=== PATIENT | female | born 1950 | race Caucasian/White ===

== ENCOUNTER 2017-01-08 11:01 | Day surgery (SDC) | payer BC ==
--- NOTE | 2017-01-08 08:26 | HP ---
PROCEDURE DATE: 01/08/17 HISTORY OF PRESENT ILLNESS: The patient is a 66 y/o who had left breast cancer diagnosis, core biopsy. She had a benign lymph node on biopsy. Has a moderately large mass left breast. Discussed with Dr. Sanchez. He feels she would benefit from neoadjuvant chemotherapy and then proceed with probable breast conservative thereafter depending on response from the treatments. PAST MEDICAL HISTORY: Asthma. CURRENT MEDICATIONS: Zyrtec. ALLERGIES: PENICILLIN, SULFA, TETRACYCLINE. PAST SURGICAL HISTORY: Tonsillectomy, partial hysterectomy. She still has 1 ovary according to the patient. FAMILY HISTORY: Cancer. SOCIAL HISTORY: No smoking or alcohol abuse. REVIEW OF SYSTEMS: 10 systems reviewed. No chest pains or palpitations. Other systems negative or noncontributory other than above and per preadmission questionnaire. PHYSICAL EXAMINATION: GENERAL: No acute distress. HEENT: Sclerae nonicteric. NECK: No JVD. CHEST: Equal excursion. Nonlabored breathing. CVS: Regular rate and rhythm. ABDOMEN: Soft. No peritoneal signs. EXTREMITIES: No significant edema. NEURO: A&O, moving extremities symmetrically. No gross motor deficits noted. BREAST: On breast exam, she has an upper inner quadrant of breast moderate sized density. IMPRESSION: 1. LEFT BREAST CANCER, MODERATELY LARGE MASS. Dr. Sanchez plans neoadjuvant chemotherapy and then will reevaluate for surgical intervention whether breast conservative therapy thereafter. The patient had been explained this and agreed to the current plan. Risk of poor placement explained in detail, but not limited to, bleeding; infection; risk of pneumothorax or thrombosis; risk of aches, pains, hematoma or seroma formation; risk of port infection; risk of port or catheter fracture or failure possibly requiring removal or replacement.; small risk of arterial or other major venous issues or injury, but not limited to. She understands as well as the general risks of anesthesia or sedation. She agrees to the planned procedure of Port-a-Cath placement as an outpatient.
[~2017-01-08 11:01] MED LIST: DIPRIVAN 200 MG/20 ML IV ONE; Ketamine HCl 50 MG/ML IJ ONE; Lactated Ringers 1,000 ML IV ONE; Lactated Ringers 1,000 ML IV SCH; Levofloxacin 500MG/100ML D5W 100 ML IV ONE; XYLOCAINE 1% HCL 20 ML MDV ONE
[2017-01-08] MEDS ORDERED: Levofloxacin 500MG/100ML D5W 100 ML IV ONE (11:09)
--- NOTE | 2017-01-08 13:37 | XRAY ---
Indication: PowerPort placement. History of breast cancer. Intraoperative fluoroscopy was provided for 4 seconds. 4 digital spot images submitted for interpretation initially demonstrates right subclavian venous guidewire with ultimately right-sided Port-A-Cath placement in good. Correlate with intraoperative findings/report.
[2017-01-08 14:25] VITALS: O2SAT 100
[2017-01-08 14:26] VITALS: BP 160/86; PULSE 78
--- NOTE | 2017-01-08 15:45 | OP ---
SURGERY DATE/TIME: 01/08/2017 1231 PREOPERATIVE DIAGNOSIS: Left breast cancer, need for rn long term care IV access for neoadjuvant treatment. POSTOPERATIVE DIAGNOSIS: Left breast cancer, need for rn long term care IV access for neoadjuvant treatment. PROCEDURE: Tunnel Port-A-Cath placement C-arm fluoroscopy right subclavian vein. SURGEON: Dr. Jerrod Erwin. ANESTHESIA: MAC. 1% lidocaine local. ESTIMATED BLOOD LOSS: Minimal. INDICATIONS: As noted above. Risks and benefits explained in detail and not limited to and consent obtained. DESCRIPTION OF PROCEDURE AND FINDINGS: The patient is taken to the operating room. MAC anesthesia introduced. Neck and chest prepped and draped in usual sterile fashion. After official time out and no disagreement with planned procedure, Trendelenburg position, 1% lidocaine local was infiltrated right subclavicular area. 18 gauge cannulation needle inserted on first pass. Good dark nonpulsatile venous return. Guide wire passed without difficulty. Anesthetizing tunnel track and port pocket. C-arm fluoroscopy confirmed the guide wire down the superior vena cava. The catheter is tunneled down from the cannulation stab wound down to port pocket. The port secured to the chest wall with Prolene suture x2. Catheter fed down break away sheath. The tip was in the distal superior vena cava on C-arm fluoroscopy. Catheter cut to appropriate length and snapped on the port with the hub. The port aspirated dark nonpulsatile venous return with ease, flushed with heparinized saline with ease. Subcu irrigated out. Good hemostasis noted. Subcu closed with 3-0 Vicryl. Skin closed with 4-0 Vicryl. Cannulation stab wound closed with 4-0 Vicryl. Steri-Strips and sterile dressing applied. Again, a spot film where the catheter connected to the port with the tip in good location distal superior vena cava noted. The lung alves were noted to be up bilaterally. It was felt that no further x-rays were necessary at this point. The patient tolerated the procedure well. There was no family available out in the waiting area to discuss the findings with. I left a message should anybody return and have questions I could be paged otherwise I will see her back in the office next week.
== END 2017-01-08 14:20 | disposition home or self-care (01) ==
LOC: SDC 11:01
PROVIDERS: ATTEND Surgery
PROC: 05H633Z Insertion of Infusion Device into Left Subclavian Vein, Percutaneous Approach (ICD-10-PCS; principal; 2017-01-08)
DX: C50.912 Malignant neoplasm of unspecified site of left female breast (principal); J45.909 Unspecified asthma, uncomplicated
CPT/HCPCS: 00532; 77001; C1788; J1642; J1956; J2704

== ENCOUNTER 2017-05-08 00:10 | Emergency (ER) | payer BC ==
[2017-05-08] MEDS ORDERED: Phenergan 25 MG INJ IM ONE (01:13)
[2017-05-08] MEDS ORDERED: Hydromorphone 1 mg/ml Ampule IM ONE (01:13)
--- NOTE | 2017-05-08 01:15 | ERPHSYRPT ---
- History of Present Illness Time Seen by Provider: 05/08/17 01:01 Source: patient Exam Limitations: no limitations Patient Subjective Stated Complaint: Pt sts fell in the shower yesterday morning and struck left side ribs. Sts took aleve at home without relief. Sts pain with deep inspiration, coughing, sneezing, movement. Rates pain7/10. Triage Nursing Assessment: Pt alert, oriented, answers all questions appropriately. Skin p/w/d, resps non-labored. Lungs CTA bilat. No obvious bruising or deforemity noted. Pt denies pain with light palpation. Physician History: ABOUT 16 HOURS AGO PT SLIPPED IN HER SHOWER AND HIT THE LEFT SIDE OF HER RIBS ON A MOLDED BENCH WITH RESULTANT LEFT RIB PAIN AND NECK PAIN. PT DENIES LOC, VOMITING, BACK PAIN; ADMITS TO SOME NUMBNESS IN THE FINGERTIPS OF BOTH HANDS AND SOME TINGLING IN THE FEET FROM CHEMOTHERAPY FOR BREAST CANCER. Allergies/Adverse Reactions: Penicillins Allergy (Unknown, Verified 05/08/17 00:34) Tightness of Throat Sulfa (Sulfonamide Antibiotics) [Sulfa(Sulfonamide Antibiotics)] Allergy ( Unknown, Verified 05/08/17 00:34) Rash tetracycline [Tetracycline] Allergy (Unknown, Verified 05/08/17 00:34) Rash anesthetics Adverse Reaction (Unknown, Uncoded 05/08/17 00:34) Nausea and Vomiting Home Medications: Cetirizine HCl [Zyrtec] 10 mg PO DAILY 12/20/12 [History] Albuterol 2.5 mg/3 ml Neb [Proventil 2.5 mg/3 ml Neb] 2 puffs IH Q4-6HPRN PRN 12/23/12 [History] Montelukast Sodium [Singulair] 10 mg PO DAILY 04/30/17 [History] Beclomethasone Dipropionate [Qvar] 8.7 gm IH DAILY 05/08/17 [History] Hx Influenza Vaccination/Date Given: No Hx Pneumococcal Vaccination/Date Given: No - Review of Systems Constitutional: No Fever Cardiac: Other (LEFT RIB PAIN) Abdominal/Gastrointestinal: No Abdominal Pain, No Vomiting Musculoskeletal: Neck Pain, No Back Pain Neurological: Sensory Changes (NUMBNESS/TINGLING IN EXTREMITIES FROM CHEMOTHERAPY) All Other Systems: Reviewed and Negative - Past Medical History Pertinent Past Medical History: Yes Neurological History: No Pertinent History ENT History: No Pertinent History Cardiac History: No Pertinent History Respiratory History: Asthma Endocrine Medical History: No Pertinent History Musculoskeletal History: No Pertinent History GI Medical History: No Pertinent History History: No Pertinent History Psycho-Social History: No Pertinent History Female Reproductive Disorders: No Pertinent History, Breast Cancer - Past Surgical History Past Surgical History: Yes Neuro Surgical History: No Pertinent History Cardiac: No Pertinent History Respiratory: No Pertinent History Gastrointestinal: No Pertinent History Genitourinary: No Pertinent History Musculoskeletal: No Pertinent History Female Surgical History: Hysterectomy, Other Other Surgical History: cyst removal on back, partial hysterectomy, L breast bx , port placement - Social History Smoking Status: Never smoker Exposure to second hand smoke: No Drug Use: none Patient Lives Alone: No - Nursing Vital Signs Nursing Vital Signs: Initial Vital Signs Temperature 98.4 F Temperature Source Oral Pulse Rate 99 Respiratory Rate 16 Blood Pressure [Right Arm] 122/69 Pain Intensity 5 - Ashleigh Coma Score Best Eye Response ([place]): (4) open spontaneously Best Verbal Response ([place]): (5) oriented Best Motor Response ([place]): (6) obeys commands [place] Total: 15 - Physical Exam General Appearance: alert Head Injury: no evidence of injury Eye Exam: PERRL/EOMI ENT Exam: airway nml, nml ext.inspection, hearing grossly normal, No clear fluid (ears), No clear fluid (nose) Neck Exam: supple, trachea midline, tenderness (MILD POSTERIOR TENDERNESS) Respiratory/Chest Exam: chest tenderness (MILD LEFT LOWER RIB TENDERNESS WITHOUT BRUISING OR CREPITUS.) Cardiovascular Exam: normal heart sounds Gastrointestinal Exam: soft, normal bowel sounds, No tenderness Back Exam: normal range of motion Extremity Exam: normal inspection, normal range of motion, No pedal edema Peripheral Pulses: dorsalis-pedis (R): 2+, dorsalis-pedis (L): 2+ Neurologic Exam: alert, cooperative, sensation nml (FOR PT), No motor deficits Skin Exam: warm, dry SpO2 Interpretation: normal SpO2: 96 Oxygen Delivery: Room Air - Course Nursing assessment & vital signs reviewed: Yes - Radiology Exams Left Ribs X-ray Interpretation: Teleradiologist Report (NO FX) - CT Exams Cervical Spine CT Interpretation: Tele-radiologist Report (NO FX) Ordered Tests: Active Orders 24 hr Category Date Time Status CERVICAL SPINE WO CONTRAST [CT] Stat Exams 05/08/17 01:12 Taken RIBS UNILATERAL Stat Exams 05/08/17 01:12 Taken Medication Summary Discontinued Medications Generic Name Dose Route Start Last Admin Trade Name Charly PRN Reason Stop Dose Admin Hydromorphone HCl 1 mg 05/08/17 01:13 05/08/17 01:42 Hydromorphone 1 Mg/Ml Ampule IM 05/08/17 01:14 1 mg STAT ONE Administration Hydromorphone HCl Confirm 05/08/17 01:39 Hydromorphone 1 Mg/Ml Ampule Administered 05/08/17 01:40 Dose 1 mg .ROUTE .STK-MED ONE Promethazine HCl 12.5 mg 05/08/17 01:13 05/08/17 01:41 Phenergan 25 Mg Inj IM 05/08/17 01:14 12.5 mg STAT ONE Administration Promethazine HCl Confirm 05/08/17 01:38 Phenergan 25 Mg Inj Administered 05/08/17 01:39 Dose 25 mg .ROUTE .STK-MED ONE - Departure Time of Disposition: 03:10 Departure Disposition: Home Clinical Impression: CONTUSION OF LEFT RIBS, NECK PAIN, HX BREAST CANCER Condition: Stable Critical Care Time: No Instructions: Prevent Falls Additional Instructions: FOLLOW UP WITH PRIVATE DOCTOR TOMORROW. Prescriptions: Hydrocodone Bit/Acetaminophen [[place] 7.5-325 Tablet] 1 each PO Q4H PRN PRN #14 tablet PRN Reason: Pain
[2017-05-08] MEDS ORDERED: Phenergan 25 MG INJ ONE (01:38)
[2017-05-08] MEDS ORDERED: Hydromorphone 1 mg/ml Ampule ONE (01:39)
[2017-05-08] MEDS ORDERED: NORCO 5/325 MG PO ONE (03:10)
[2017-05-08] MEDS ORDERED: NORCO 5/325 MG ONE (03:16)
[2017-05-08 03:30] VITALS: BP 110/68; PULSE 78; O2SAT 95
--- NOTE | 2017-05-08 09:23 | XRAY ---
Indication: Left neck pain following fall. Multiple contiguous axial images obtained through the cervical spine. Sagittal and coronal reformatted images obtained. Comparison: None Osseous structures demineralized consistent with patient's age. Axial images negative for acute fracture, suspicious bony lesions, or spinal canal stenosis. Minimal C3-C5 endplate spurring. Sagittal and coronal reformatted images demonstrates normal alignment. Disc spaces preserved. No acute compression fracture, subluxation, or jump facet. Normal-appearing craniocervical junction. Visualized noncontrasted soft tissues are unremarkable. Minimal biapical pleural parenchymal scarring. Base of the brain unremarkable. Impression: 1. Negative acute fracture/subluxation. 2. Osteopenia and minimal C3-C5 degenerative spurring. Comment: Preliminary interpretation was made by [facility]. No discrepancy. CTDI 105.51
--- NOTE | 2017-05-08 09:24 | XRAY ---
Indication: Pain following fall. Comparison: None 2 views of the left ribs demonstrates lateral 5th rib nondisplaced hairline fracture with left lung base atelectasis and probable hemothorax. No pneumothorax. Elsewhere mild osteopenia, mild AC degenerative arthropathy, multilevel spinal degenerative endplate spurring, faint aortic calcifications, and partially visualized right Port-A-Cath. Comment: Preliminary interpretation was made by [facility] who does not report rib fracture and lung findings. I gave telephone report to Dr. Ortega in the ER at 0914 hrs. on May 08, 2017.
== END 2017-05-08 03:29 | disposition home or self-care (01) ==
LOC: ED 00:10
DX: S20.212A Contusion of left front wall of thorax, initial encounter (principal); M54.2 Cervicalgia; Z85.3 Personal history of malignant neoplasm of breast; W18.2XXA Fall in (into) shower or empty bathtub, initial encounter
CPT/HCPCS: 71100; 72125; 96372; 96374; 99283; 99284; J1170; J2550; A9270-GY

== ENCOUNTER 2017-05-28 07:21 | Day surgery (SDC) | payer BC ==
[~2017-05-28 07:21] MED LIST changes: -DIPRIVAN 200 MG/20 ML IV ONE; -Ketamine HCl 50 MG/ML IJ ONE; -Lactated Ringers 1,000 ML IV SCH; -Levofloxacin 500MG/100ML D5W 100 ML IV ONE; +Sensorcaine 0.25% 10 ML ONE; -XYLOCAINE 1% HCL 20 ML MDV ONE
[2017-05-28] MEDS ORDERED: EMLA Cream 5 GM TP ONE (07:39)
[2017-05-28] MEDS ORDERED: Lactated Ringers 1,000 ML IV ONE ×2 (07:39→15:37)
[2017-05-28] MEDS ORDERED: Levofloxacin 500MG/100ML D5W 500 MG/100 ML BAG IV ONE (07:40)
[2017-05-28] MEDS ORDERED: Zofran 4 MG/2 ML VIAL IV ONE (08:00)
[2017-05-28] MEDS ORDERED: Decadron 4 MG INJ IV ONE (08:00)
[2017-05-28] MEDS ORDERED: Lactated Ringers 1,000 ML IV SCH (08:00)
[2017-05-28] MEDS ORDERED: Sodium Chloride 0.9% 10 ML FLUSH Syringe PORT FLUSH PRN (08:00)
[2017-05-28] MEDS ORDERED: Levofloxacin 500MG/100ML D5W 500 MG/100 ML BAG IV SCH (08:00)
[2017-05-28] MEDS ORDERED: DIPRIVAN 200 MG/20 ML IV ONE (08:00)
[2017-05-28] MEDS ORDERED: Versed 2 MG/2 ML Injection IV ONE (08:06)
[2017-05-28] MEDS ORDERED: EMLA Cream 5 GM TP PRN (08:07)
--- NOTE | 2017-05-28 08:31 | HP ---
PROCEDURE DATE: 05/28/17 HISTORY OF PRESENT ILLNESS: Patient is a 66 y/o with history of breast cancer. Is in need of neoadjuvant chemotherapy. Her area medial aspect of her left breast is smaller since treatment. No large axillary masses or adenopathy on physical exam. Feel she is a candidate to consider left breast lumpectomy with prior needle placement with bracketing technique with sentinel lymph node biopsy. PAST MEDICAL HISTORY: Includes asthma. CURRENT MEDICATIONS: Zyrtec. ALLERGIES: PENICILLIN, SULFA, TETRACYCLINE. PAST SURGICAL HISTORY: Tonsillectomy, partial hysterectomy. She had a Port-a-Cath placement in the past. FAMILY HISTORY: Cancer. SOCIAL HISTORY: No smoking or alcohol abuse. REVIEW OF SYSTEMS: 12 systems reviewed. No chest pain or palpitations. Other systems negative or noncontributory other than above and per preadmission questionnaire. PHYSICAL EXAMINATION: GENERAL: No acute distress. HEENT: Sclerae nonicteric. NECK: No JVD. CHEST: Equal excursion. Nonlabored breathing. CVS: Regular rate and rhythm. ABDOMEN: Soft, nontender. EXTREMITIES: No significant edema. NEURO: Alert, moving extremities symmetrically. No gross motor deficits noted. BREASTS: Has got a smaller density in her medial aspect of her left breast. IMPRESSION: 1. LEFT BREAST CANCER STATUS POST NEOADJUVENT TREATMENT. SHE HAS A SMALLER DENSITY NOW. FEEL SHE IS A CANDIDATE FOR CONSIDERATION OF LEFT BREAST LUMPECTOMY WITH PRIOR NEEDLE PLACEMENT WITH BRACKETING TECHNIQUE WITH SENTINEL LYMPH NODE BIOPSY. Risks and benefits explained in detail, but not limited to, bleeding; infection; risk of hematoma or seroma formation; risk of contour changes in the area of excision; risk of involved margins possibly requiring wider excision and other treatments; general risk of anesthesia or sedation. Regarding the sentinel node biopsy, risk of hematoma, seroma, or lymphocele formation likely would have a drain immediately postoperatively usually removed in the office eventually when the drainage is down. Otherwise, general risks of aches, pains, burning, or numbness or weakness of her shoulder, extremity, or scapula with risk of sensory or motor nerve irritation, scar formation, or injury, possibly long-term or chronic; general risks of anesthesia or sedation; risk of wound dehiscence possibly requiring packing, but not limited to. She understands and agreed to the planned procedure. Will proceed with left breast lumpectomy with prior needle placement with bracketing technique with sentinel lymph node biopsy as an outpatient.
[2017-05-28] MEDS ORDERED: SUBLIMAZE 100 MCG/2 ML IV ONE (09:00)
[2017-05-28] MEDS ORDERED: DILAUDID 2 MG INJECTION IV ONE (09:00)
[2017-05-28] MEDS ORDERED: MORPHINE SULFATE 10 MG/ML ONE (10:42)
--- NOTE | 2017-05-28 12:19 | XRAY ---
Indication: Left breast 10:00 biopsy proven carcinoma. 4 subcutaneous injections around the left breast aerola was performed totaling 800 Ci of technetium 99 filtered sulfur colloid. Warm compress applied with delayed imaging performed. Normal expected radiopharmaceutical activity at the injection sites. There is a solitary focus of radiopharmaceutical activity in the axilla. Area was demarcated for the surgeon. Impression: Solitary left axillary sentinel node.
--- NOTE | 2017-05-28 12:25 | XRAY ---
Indication: Needle wire localization for biopsy proven 10:00 left breast infiltrating ductal carcinoma. Informed consent obtained. Left breast was compressed in the craniocaudal plane using a alphanumeric grid paddle. Skin was cleansed with Betadine swabs. Two 20-gauge Ghiatas needle was then percutaneously inserted into the 10:00 breast mass using bracketing technique. Orthogonal left mammogram was obtained. The 2 needles were then manipulated with the tip just past the breast mass/mammotome clip. Ultimately hooked gage wire was then inserted into the needles with the outer needles removed. Repeat orthogonal digital mammograms obtained confirm good needle placement. Both gage wires secured and overlying bandage material applied. Patient was then taken to surgery. Impression: Technically successful needle wire localization of 10:00 breast mass/mammotome clip using bracketing technique. No immediate complications.
--- NOTE | 2017-05-28 14:54 | XRAY ---
Indication: Breast specimen. Single digital spot image of the submitted breast specimen demonstrates 2 intact gage wires bracketing the entire known breast carcinoma and mammotome clip. This information was relayed to the surgeon.
[2017-05-28] MEDS ORDERED: SUBLIMAZE 100 MCG/2 ML ONE (16:28)
[2017-05-28 19:24] VITALS: BP 142/78
[2017-05-28 20:12] VITALS: PULSE 106; O2SAT 92
--- NOTE | 2017-05-29 11:22 | OP ---
SURGERY DATE/TIME: 05/28/2017 1350 PREOPERATIVE DIAGNOSIS: Left breast cancer status post neoadjuvant treatment now in need of lumpectomy and [place] node biopsy. POSTOPERATIVE DIAGNOSIS: Left breast cancer status post neoadjuvant treatment now in need of lumpectomy and [place] node biopsy. PROCEDURES: 1) Left breast lumpectomy with prior needle placement (bracketing technique). 2) [place] lymph node biopsy with radiolymphoscintigraphy left axilla. SURGEON: Dr. Jerrod Erwin. PHARMACOLOGY TEACHER: Renetta Daily, Medical Student III. ANESTHESIA: General. ESTIMATED BLOOD LOSS: Minimal. INDICATIONS: As noted above. Risks and benefits explained in detail and not limited to and consent obtained. DESCRIPTION OF PROCEDURE AND FINDINGS: The patient preoperatively had the wire placed per radiology. The breast is marked. She was taken to the operating room. General anesthesia introduced. After official time out and no disagreement with planned procedure, the breast and axilla had been prepped and draped in usual sterile fashion. Marking out spindle-shaped segment of skin overlying the raised firm area in the upper inner quadrant of the left breast was accomplished. Dissection carried down below the subcu. With the wires it was mobilized up into the wound as they were more superior. Dissection was then carried circumferentially around this trying to create a 1 cm margin or so around this firm area dissecting down to the chest wall, dissecting off the pectoralis fascia underneath. This is accomplished circumferentially around this area finally freeing the area. It was passed off. The radiologist called back and said the specimen was good that the wires in area in question were within the specimen. Again no further dissection or margins could be obtained posteriorly this was down to the pectoralis and the fascia had been taken off. Otherwise hemostasis controlled with some pin point cautery. The breast parenchyma was then reapproximated back together with some interrupted 3-0 Vicryl deeper parenchyma and superficial subcu reducing space as well as possible. Skin closed with 4-0 Vicryl in running subcuticular fashion. Steri-Strips and sterile dressing applied. The patient tolerated the procedure well. Attention was turned to the [place] lymph node biopsy. She had been injected with radioscintigraphy earlier. Using the probe near the skin the area in question was noted left axilla. A transverse incision made in this area. Dissection carried down through the subcu fat to the axillary fat pad and directly on top of the slightly enlarged indurated node with some surrounding inflammation. There was an addition to a smaller node or two adjacent to this. These two or three n odes were removed en bloc as they gave the most uptake on the lymphoscintigraphy probe. Slow careful dissection staying directly on the lymph node was accomplished, clipping the small lymphatics, arterioles and venous structures going into and out of this area staying directly on the sienna tissue. It was passed off. Ex vivo gave a reading of 312. It was felt to be true hot node. The adjacent sienna tissue gave a reading of 40 or so, otherwise attention turned back to the axillary wound. There were just background readings of single digits. It was felt there was no other hot [place] nodes at this juncture in this axillary wound area. Good hemostasis noted. Deep subcu closed with 3-0 Vicryl, superficial subcu closed with 3-0 Vicryl, skin closed with 4-0 Vicryl. A 7 flat NEW drain had been placed in inferior stab wound and placed to bulb suction secured with PDS suture. The patient tolerated the procedure well. There were no immediate complications. Pressure dressings, sterile dressings applied. Findings discussed with the family out in the waiting area. Again, will have her come back to the office next week to possibly get the drain removed if it is not draining much.
== END 2017-05-28 20:15 | disposition home or self-care (01) ==
LOC: SDC 07:21
PROVIDERS: ATTEND Surgery
PROC: 0HBU0ZZ Excision of Left Breast, Open Approach (ICD-10-PCS; principal; 2017-05-28)
PROC: 0HBU0ZX Excision of Left Breast, Open Approach, Diagnostic (ICD-10-PCS; 2017-05-28)
PROC: 0HBU3ZX Excision of Left Breast, Percutaneous Approach, Diagnostic (ICD-10-PCS; 2017-05-28)
DX: C50.912 Malignant neoplasm of unspecified site of left female breast (principal); J45.909 Unspecified asthma, uncomplicated; Z98.890 Other specified postprocedural states
CPT/HCPCS: 00400; 01610; 19281; 36415; 76098; 78195; 93005; A9541; J1100; J1170; J1642; J1956; J2270; J2405; J2704; J3010; A9270-GY

== ENCOUNTER 2018-09-09 17:13 | Inpatient (IN) | payer BC ==
[2018-09-09] MEDS ORDERED: Vancomycin 1GM/ Ns 250ML*** 1 GM/250 ML IVPB IV ONE (17:40)
[2018-09-09] MEDS ORDERED: Sodium Chloride 0.9% 1000 ML 1,000 ML IV STA (17:41)
[2018-09-09] MEDS ORDERED: Sodium Chloride 0.9% 1000 ML 1,000 ML IV SCH (17:45)
--- NOTE | 2018-09-09 17:45 | ERPHSYRPT ---
- History of Present Illness Time Seen by Provider: 09/09/18:18 Source: patient Exam Limitations: clinical condition Patient Subjective Stated Complaint: pt reports on 09/02/18 she had some clear drainage and some allergy type symptoms due to [place], states she saw her [employer]EEPER [employer] who prescribed a medrol dose kashif for her symptoms, states she finished that sunday09/07/18, states sunday morning she woke to facial swelling and pain on the right side of her face down her neck and along the jaw. pt has difficulty opening her mouth, pt reports she has not been able to eat much for 2 days. pt did start clindamycin yesterday 02/20. Triage Nursing Assessment: pt is aox3, pupils perrl, afebrile, resps easy and non labored, radial pulses strong and equal, significant edema noted to the right face, neck and jaw with tenderness. pt skin is warm to touch, no drainage noted at this time. skin is intact. Physician History: PATIENT RECENTLY TREATED FOR UPPER RESPIRATORY INFECTION 1 WEEK AGO ON 2017 WITH A MEDROL DOSEPAK COMPLAINS OF ONSET OF RIGHT SIDED FACIAL SWELLING AND PAIN X 2 DAYS. ASSOCIATED WITH LOW GRADE FEVER. DENIES DIFFICULTY SWALLOWING OR BREATHING. PATIENT HAS A HISTORY OF LEFT BREAST CARCINOMA, TREATED WITH CHEMOTHERAPY 1 YEAR FOLLOWED BY RADIATION THERAPY. Timing/Duration: abrupt onset Severity: moderate ENT Location: facial Prearrival Treatment: prescription meds (PLACED ON CLINDAMYCIN X 2 DAYS) Associated Symptoms: facial pain/swelling, jaw pain, swollen glands Allergies/Adverse Reactions: Penicillins Allergy (Unknown, Verified 09/09/18 17:40) Tightness of Throat Sulfa (Sulfonamide Antibiotics) [Sulfa(Sulfonamide Antibiotics)] Allergy ( Unknown, Verified 09/09/18 17:40) Rash tetracycline [Tetracycline] Allergy (Unknown, Verified 09/09/18 17:40) Rash morphine Adverse Reaction (Intermediate, Verified 09/09/18 17:40) Vomiting anesthetics Adverse Reaction (Unknown, Uncoded 09/09/18 17:40) Nausea and Vomiting Home Medications: Cetirizine HCl [Zyrtec] 10 mg PO DAILY 12/20/12 [History] Albuterol 2.5 mg/3 ml Neb [Proventil 2.5 mg/3 ml Neb] 2 puffs IH Q4-6HPRN PRN 12/23/12 [History] Montelukast Sodium [Singulair] 10 mg PO DAILY 04/30/17 [History] Beclomethasone Dipropionate [Qvar] 8.7 gm IH DAILY 05/08/17 [History] Anastrozole [Arimidex] 1 mg PO DAILY 09/09/18 [History] Hx Tetanus, Diphtheria Vaccination/Date Given: No Hx Influenza Vaccination/Date Given: No Hx Pneumococcal Vaccination/Date Given: No Immunizations Up to Date: Yes - Review of Systems Constitutional: No Fever, No Chills Eyes: No Symptoms Ears, Nose, & Throat: Ear Pain, Other (RIGHT FACIAL SWELLING) Respiratory: No Cough, No Dyspnea Cardiac: No Symptoms, No Chest Pain, No Edema, No Syncope Abdominal/Gastrointestinal: No Symptoms, No Abdominal Pain, No Nausea, No Vomiting, No Diarrhea Genitourinary Symptoms: No Symptoms, No Dysuria Musculoskeletal: No Symptoms, No Back Pain, No Neck Pain Skin: No Rash Neurological: No Dizziness, No Focal Weakness, No Sensory Changes Psychological: No Symptoms Endocrine: No Symptoms All Other Systems: Reviewed and Negative - Past Medical History Pertinent Past Medical History: Yes Neurological History: No Pertinent History ENT History: No Pertinent History Cardiac History: No Pertinent History Respiratory History: Asthma Endocrine Medical History: No Pertinent History Musculoskeletal History: No Pertinent History GI Medical History: No Pertinent History History: No Pertinent History Psycho-Social History: No Pertinent History Female Reproductive Disorders: No Pertinent History, Breast Cancer Other Medical History: rib cracked left side - Past Surgical History Past Surgical History: Yes Neuro Surgical History: No Pertinent History Cardiac: No Pertinent History Respiratory: No Pertinent History Gastrointestinal: No Pertinent History Genitourinary: No Pertinent History Musculoskeletal: No Pertinent History Female Surgical History: Hysterectomy, Lumpectomy, Other Other Surgical History: cyst removal on back, partial hysterectomy, L breast bx , port placement - Social History Smoking Status: Never smoker Exposure to second hand smoke: No Drug Use: none Patient Lives Alone: No - Female History Hx Now: No - Nursing Vital Signs Nursing Vital Signs: Initial Vital Signs Temperature 99.2 F 09/09/18 17:24 Pulse Rate 106 H 09/09/18 17:24 Respiratory Rate 18 09/09/18 17:24 Blood Pressure 121/78 09/09/18 17:24 O2 Sat by Pulse Oximetry 97 09/09/18 17:24 Pain Scale Pain Intensity 5 - Physical Exam General Appearance: mild distress Eye Exam: bilateral eye: normal inspection, PERRL, EOMI Ear Exam: right ear: other (MARKED TENDERNESS OVER TMJ), bilateral ear: auricle normal, canal normal, TM normal Nasal Exam: normal inspection Throat Exam: normal, pharynx normal (MARKED FACIAL TENDERNESS WITH SWELLING OVER RIGHT PAROTID GLAND AND MAXILLARY SINUS EXTENDING TO MID MANDIBLE) Neck Exam: lymphadenopathy (R) Cardiovascular/Respiratory Exam: normal breath sounds, regular rate/rhythm ( TACHYCARDIA) Neurologic Exam: alert, oriented x 3 Skin Exam: normal color, warm, dry SpO2 Interpretation: normal SpO2: 97 Oxygen Delivery: Room Air - Course EKG Interpreted by Me: RATE, Sinus Rhythm, NORMAL AXIS - CT Exams Soft Tissue Neck CT Interpretation: Discussed w/radiologist (RIGHT JAW DEEP SOFT TISSUE SWELLING RULE OUT CELLULITIS, RIGHT PAROTIDITIS, NO ABSCESS OR SUSPICIOUS BONE LESION) Ordered Tests: Active Orders 24 hr Category Date Time Status Up Ad Gabriela ROUTINE Activity 09/09/18 20:32 Ordered Call Admit Doctor for Orders ON ADMISSION Care 09/09/18 20:31 Ordered Page Technician STAT Care 09/09/18 17:45 Active Code Status Order ROUTINE Care 09/09/18 20:30 Ordered EKG-ER Only STAT Care 09/09/18 17:45 Active IV Care Q6H Care 09/09/18 20:30 Ordered IV Insertion STAT Care 09/09/18 17:[address] in Observation ROUTINE Care 09/09/18 20:30 Ordered Vital Signs Q4H Care 09/09/18 20:30 Ordered Regular Diet Diet 09/09/18 Breakfast Ordered NECK WITH CONTRAST [CT] Stat Exams 09/09/18 18:17 Taken BLOOD CULTURE Stat Lab 09/09/18 18:15 Received BMP Stat Lab 09/09/18 18:00 Completed CBC W DIFF AM.LAB Lab 09/10/18 04:00 Ordered CBC W DIFF Stat Lab 09/09/18 18:00 Completed Lactic Acid Stat Lab 09/09/18 17:45 Completed Manual Differential NC Stat Lab 09/09/18 18:00 Completed PROTIME WITH INR Stat Lab 09/09/18 18:00 Completed TROPONIN Q3H Lab 09/09/18 18:00 Completed TROPONIN Q3H Lab 09/09/18 21:00 Ordered TROPONIN Q3H Lab 09/10/18 00:00 Ordered TROPONIN Q3H Lab 09/10/18 03:00 Ordered TROPONIN Q3H Lab 09/10/18 06:00 Ordered VENOUS BLOOD GAS Stat Lab 09/09/18 17:45 Completed Transfer Order Routine Transfer 09/09/18 Ordered Medication Summary Generic Name Dose Route Start Last Admin Trade Name Charly PRN Reason Stop Dose Admin Gentamicin Sulfate/Sodium Chloride 80 mg in 50 mls @ 100 mls/hr 09/09/18 20: 26 09/09/18 20:34 Gentamicin 80 Mg/50 Ml Premix IV 09/09/18 20:55 100 mls/hr STAT ONE 100 mls/hr Administration Discontinued Medications Generic Name Dose Route Start Last Admin Trade Name Freq PRN Reason Stop Dose Admin Sodium Chloride 1,000 mls @ 250 mls/hr 09/09/18 17:45 Sodium Chloride 0.9% 1000 Ml IV 10/09/18 17:44 .Q4H RENEE Vancomycin HCl 1 gm in 250 mls @ 167 mls/hr 09/09/18 17:40 09/09/18 17:48 Vancomycin 1gm/ Ns 250ml IV 09/09/18 19:09 167 mls/hr STAT ONE Administration Sodium Chloride 1,000 mls @ 500 mls/hr 09/09/18 17:41 09/09/18 17:48 Sodium Chloride 0.9% 1000 Ml IV 09/09/18 19:40 500 mls/hr .Q2H STA Administration Sodium Chloride Confirm 09/09/18 17:46 Sodium Chloride 0.9% 1000 Ml Administered 09/09/18 17:47 Dose 1,000 mls @ ud .ROUTE .STK-MED ONE Vancomycin HCl Confirm 09/09/18 17:47 Vancomycin 1gm/ Ns 250ml Administered 09/09/18 17:48 Dose 250 mls @ ud IV .STK-MED ONE Gentamicin Sulfate/Sodium Chloride Confirm 09/09/18 20:29 Gentamicin 80 Mg/50 Ml Premix Administered 09/09/18 20:30 Dose 80 mg in 50 mls @ ud IV .STK-MED ONE Lab/Rad Data: Laboratory Result Diagrams 09/09/18 18:00 09/09/18 18:00 Laboratory Results 09/09/18 09/09/18 09/09/18 Range/Units 18:00 18:00 18:00 WBC (4.0-10.5) K/mm3 RBC (4.1-5.4) M/mm3 Hgb (12.0-16.0) gm/dl Hct (35-47) % MCV (78-100) fl MCH (26-32) pg MCHC (32-36) g/dl RDW (11.5-14.0) % Plt Count (150-450) K/mm3 MPV (6-9.5) fl PT 14.7 H (9.95-12.35) SECONDS INR 1.26 (0.8-3.0) pO2/FiO2 Ratio % VBG pH (7.32-7.42) VBG pCO2 at Pat Temp (42-55) mm/Hg VBG pO2 at Pat Temp (25-40) mm/Hg VBG HCO3 (22-28) meq/L VBG O2 Sat (Alireza) (95-100) VBG Base Excess (-2.0-2.0) VBG Hemoglobin VBG Carboxyhemoglobin (0.0-6.9) % T HGB POC Potassium (3.5-5.1) Sodium 136 L (137-145) mmol/L Potassium 3.7 (3.5-5.1) mmol/L Chloride 101 (98-107) mmol/L Carbon Dioxide 21 L (22-30) mmol/L Anion Gap 16.7 H (5-15) MEQ/L BUN 19 H (7-17) mg/dL Creatinine 0.86 (0.52-1.04) mg/dL Estimated GFR > 60.0 ML/MIN Glucose 111 H (74-106) mg/dL Lactic Acid (0.4-2.0) Calcium 8.7 (8.4-10.2) mg/dL Troponin I < 0.012 (0.000-0.034) ng/mL 09/09/18 09/09/18 09/09/18 Range/Units 18:00 17:45 17:45 WBC 15.4 H (4.0-10.5) K/mm3 RBC 4.69 (4.1-5.4) M/mm3 Hgb 13.8 (12.0-16.0) gm/dl Hct 41.2 (35-47) % MCV 87.8 (78-100) fl MCH 29.4 (26-32) pg MCHC 33.5 (32-36) g/dl RDW 13.5 (11.5-14.0) % Plt Count 224 (150-450) K/mm3 MPV 9.1 (6-9.5) fl PT (9.95-12.35) SECONDS INR (0.8-3.0) pO2/FiO2 Ratio 21.0 % VBG pH 7.44 H (7.32-7.42) VBG pCO2 at Pat Temp 32 L (42-55) mm/Hg VBG pO2 at Pat Temp 35 (25-40) mm/Hg VBG HCO3 21.7 L (22-28) meq/L VBG O2 Sat (Alireza) 75.3 L (95-100) VBG Base Excess -1.5 (-2.0-2.0) VBG Hemoglobin 14.9 VBG Carboxyhemoglobin 3.4 (0.0-6.9) % T HGB POC Potassium 3.5 (3.5-5.1) Sodium (137-145) mmol/L Potassium (3.5-5.1) mmol/L Chloride (98-107) mmol/L Carbon Dioxide (22-30) mmol/L Anion Gap (5-15) MEQ/L BUN (7-17) mg/dL Creatinine (0.52-1.04) mg/dL Estimated GFR ML/MIN Glucose (74-106) mg/dL Lactic Acid 1.2 (0.4-2.0) Calcium (8.4-10.2) mg/dL Troponin I (0.000-0.034) ng/mL - Progress Progress: pain not gone completely Progress Note: 09/09/18 17:50 IV NORMAL SALINE 500ML/HR AFTER 2 SETS OF BLOOD CULTURES VANCOMYCIN 1GM IVPB, AND GENTAMYCIN 80MG IVBP 09/09/18 20:07 09/09/18 20:[address] Wilkinson (DISCUSSED WITH DR WILKINSON AT 2019 FOR OBSERVATION) - Departure Time of Disposition: 20:31 Departure Disposition: Observation Clinical Impression: ACUTE PAROTIDITIS, FACIAL CELLULITIS Condition: Stable Critical Care Time: No Referrals: YENI LENNON [Primary Care Provider] -
[2018-09-09] MEDS ORDERED: Sodium Chloride 0.9% 1000 ML 1,000 ML ONE (17:46)
[2018-09-09] MEDS ORDERED: Vancomycin 1GM/ Ns 250ML*** 250 ML IV ONE (17:47)
[2018-09-09 17:55] LABS: VBG BASE EXCESS -1.5 (-2.0-2.0); VBG CARBOXYHEMOGLOBIN 3.4 % T HGB (0.0-6.9); VBG HCO3- 21.7 meq/L (22-28); VBG HEMOGLOBIN 14.9; VBG O2 SATURATION 75.3 (95-100); VBG POTASSIUM 3.5 (3.5-5.1); VBG pH 7.44 (7.32-7.42)
[2018-09-09 18:07] LABS: Hematocrit 41.2 % (35-47); Hemoglobin 13.8 gm/dl (12.0-16.0); Mean Cell Volume 87.8 fl (78-100); Mean Corpuscular Hemoglobin 29.4 pg (26-32); Mean Corpuscular Hgb Concent. 33.5 g/dl (32-36); Mean Platelet Volume 9.1 fl (6-9.5); Platelet Count 224 K/mm3 (150-450); Red Blood Count 4.69 M/mm3 (4.1-5.4); Red Cell Distribution Width 13.5 % (11.5-14.0); White Blood Count 15.4 K/mm3 (4.0-10.5)
[2018-09-09 18:36] LABS: INR 1.26 (0.8-3.0)
[2018-09-09 18:40] LABS: ANION GAP 16.7 MEQ/L (5-15); BLOOD UREA NITROGEN 19 mg/dL (7-17); CHLORIDE 101 mmol/L (98-107); Calcium 8.7 mg/dL (8.4-10.2); Carbon Dioxide 21 mmol/L (22-30); Creatinine 1 0.86 mg/dL (0.52-1.04); Glucose 111 mg/dL (74-106); Potassium 3.7 mmol/L (3.5-5.1); SODIUM 136 mmol/L (137-145)
[2018-09-09] MEDS ORDERED: GENTAMICIN 80 MG/50 ML PREMIX*** 80 MG/50 ML ML IV ONE ×2 (20:26→20:29)
[2018-09-09] MEDS ORDERED: PROVENTIL 2.5 MG/3 ML NEB IH PRN (20:30)
[2018-09-09] MEDS ORDERED: Zofran 4 MG/2 ML VIAL IV PRN (20:30)
[2018-09-09] MEDS: Advair Hfa 115/21 Common canister IH SCH (21:17)
[2018-09-09 22:42] LABS: BAND 1 % (0.0-2.0); Lymphocytes 13 % (24-44); Monocyte 4 % (0.0-12.0); Neutrophils 82 % (36.0-66.0); Platelet Estimate NORMAL (NORMAL); Total Cells Counted 100; Toxic Granulation 1+
[2018-09-09] MEDS ORDERED: Calcium 500MG W/Vit D Tablet PO ONE (22:54)
[2018-09-09] MEDS ORDERED: CLARITIN 10 MG PO ONE (22:55)
[2018-09-09] MEDS: Singulair 10 MG PO SCH (23:08)
[2018-09-09] MEDS: Sodium Chloride 0.9% 1000 ML 1,000 ML IV SCH (23:22)
[2018-09-09] MEDS ORDERED: PROVENTIL COMMON CANISTER IH PRN (23:31)
[2018-09-10] MEDS: TYLENOL 325 MG PO PRN ×3 (00:29→20:11)
[2018-09-10] MEDS ORDERED: GENTAMICIN 80 MG/50 ML PREMIX*** 80 MG/50 ML ML IV ONE (03:15)
[2018-09-10] MEDS ORDERED: GARAMYCIN INJ IV SCH (04:00)
[2018-09-10 06:34] LABS: BASOPHIL % 0.2 % (0.0-0.4); Basophil (Absolute #) 0.02 (0-0.4); Eosinophil (Absolute #) 0.11 (0-0.5); Granulocyte Absolute (ANC) 8.16 (1.4-6.9); Granulocytes % 76.1 % (36.0-66.0); Hematocrit 36.7 % (35-47); Hemoglobin 12.1 gm/dl (12.0-16.0); Lymphocyte (Absolute #) 1.46 (1.0-4.6); Lymphocytes % 13.6 % (24.0-44.0); Mean Cell Volume 89.3 fl (78-100); Mean Corpuscular Hemoglobin 29.4 pg (26-32); Monocyte (Absolute #) 0.98 (0.0-1.3); Monocytes % 9.1 % (0.0-12.0); Platelet Count 186 K/mm3 (150-450); Red Blood Count 4.11 M/mm3 (4.1-5.4); Red Cell Distribution Width 13.4 % (11.5-14.0); White Blood Count 10.7 K/mm3 (4.0-10.5)
[2018-09-10] MEDS: Advair Hfa 115/21 Common canister IH SCH ×2 (07:03→19:53)
[2018-09-10] MEDS ORDERED: PHARMACY DOSING REQUIRED: GENTAMICIN IV ONE (07:37)
[2018-09-10] MEDS ORDERED: PHARMACY DOSING REQUIRED: VANCOMYCIN IV ONE (07:38)
--- NOTE | 2018-09-10 07:57 | PCM.HP ---
History of Present Illness - Chief Complaint Chief Complaint: acute parotiditis, facial cellulitis Date: 09/10/18 History of Present Illness: is a 68 year old female. with history of severe allergies and allergic asthma and previous hx of breast cancer treated 1 year ago, developed sudden onset of swelling in the right face and pain with mild fevers. She started on po clindamycin 24 hours prior to presentation but it continued to worsen and was having difficulty opening her mouth. She has never had any problems like this before. - Review of Systems Constitutional: Fever, Chills, Fatigue Eyes: No Symptoms Ears, Nose, & Throat: Ear Pain, Nose Congestion, Sinus Drainage, Mouth Pain, Mouth Swelling, Painful Swallowing Respiratory: No Cough, No Short Of Breath Cardiac: No Chest Pain, No Edema, No Syncope Abdominal/Gastrointestinal: No Abdominal Pain, No Nausea, No Vomiting, No Diarrhea Genitourinary Symptoms: No Dysuria Musculoskeletal: No Back Pain, No Neck Pain Skin: No Rash Neurological: No Dizziness, No Focal Weakness, No Sensory Changes Psychological: No Symptoms Endocrine: No Symptoms Hematologic/Lymphatic: No Symptoms Immunological/Allergic: No Symptoms Medications & Allergies Home Medications: Home Medication List Cetirizine HCl [Zyrtec] 10 mg PO DAILY 12/20/12 [History Confirmed 09/09/18] Albuterol 2.5 mg/3 ml Neb [Proventil 2.5 mg/3 ml Neb] 2 puffs IH Q4-6HPRN PRN 12/23/12 [History Confirmed 09/09/18] Montelukast Sodium [Singulair] 10 mg PO DAILY 04/30/17 [History Confirmed ] Beclomethasone Dipropionate [Qvar] 8.7 gm IH DAILY 05/08/17 [History Confirmed 09/09/18] Anastrozole [Arimidex] 1 mg PO DAILY 09/09/18 [History Confirmed 09/09/18] Calcium Carbonate/Vitamin D3 [Calcium 250+D Tablet] 2 each PO DAILY 09/09/18 [ History Confirmed 09/09/18] Clindamycin HCl 300 mg PO Q8H 09/09/18 [History Confirmed 09/09/18] Clobetasol Propionate/Emoll [Clobetasol Emollient 0.05% Crm] 1 applic TP DAILY 09/09/18 [History Confirmed 09/09/18] Allergies/Adverse Reactions: Allergies Allergy/AdvReac Type Severity Reaction Status Date / Time Penicillins Allergy Unknown Tightness Verified 09/09/18 17:40 of Throat Sulfa (Sulfonamide Allergy Unknown Rash Verified 09/09/18 17:40 Antibiotics) [Sulfa(Sulfonamide Antibiotics)] tetracycline [Tetracycline] Allergy Unknown Rash Verified 09/09/18 17:40 morphine AdvReac Intermediate Vomiting Verified 09/09/18 17:40 anesthetics AdvReac Unknown Nausea and Uncoded 09/09/18 17:40 Vomiting - Past Medical History Past Medical History: Yes Neurological History: No Pertinent History ENT History: No Pertinent History Cardiac History: No Pertinent History Respiratory History: Asthma Endocrine Medical History: No Pertinent History Musculoskelatal History: No Pertinent History GI Medical History: No Pertinent History History: No Pertinent History Pyscho-Social History: No Pertinent History Reproductive Disorders: Breast Cancer Comment: rib cracked left side, chemotherapy - Female History Are you now?: No - Past Surgical History Past Surgical History: Yes Neuro Surgical History: No Pertinent History Cardiac History: No Pertinent History Respiratory Surgery: No Pertinent History GI Surgical History: No Pertinent History Genitourinary Surgical Hx: No Pertinent History Musculskeletal Surgical Hx: No Pertinent History Female Surgical History: Hysterectomy, Lumpectomy, Other Other Surgical History: cyst removal on back, partial hysterectomy, L breast bx/ lumpectomy, port placement right side - Social History Smoking Status: Never smoker Exposure to second hand smoke: No Alcohol: None Drug Use: none - Physical Exam Vital Signs: Vital Signs - 24 hr Temp Pulse Resp BP Pulse Ox 09/10/18 07:04 76 16 95 09/10/18 06:58 98.4 F 76 18 102/49 98 09/10/18 04:00 98.4 F 76 18 102/49 98 09/10/18 00:00 98.9 F 87 16 126/58 96 09/09/18 21:29 99.2 F 79 18 132/64 97 09/09/18 21:17 90 17 96 09/09/18 20:39 97 09/09/18 19:50 79 16 132/64 97 09/09/18 19:21 84 18 142/59 99 09/09/18 17:24 99.2 F 106 H 18 121/78 97 General Appearance: no apparent distress, alert Neurologic Exam: alert, oriented x 3, cooperative, normal mood/affect, nml cerebellar function, nml station & gait, sensation nml, No motor deficits Eye Exam: PERRL/EOMI, eyes nml inspection Ears, Nose, Throat Exam: normal ENT inspection, pharynx normal, moist mucous membranes, other (right parotid gland warm tender very swollen no palpable stone no obvious drainage no fluctuance) Neck Exam: normal inspection, non-tender, supple, full range of motion Respiratory Exam: normal breath sounds, lungs clear, No respiratory distress Cardiovascular Exam: regular rate/rhythm, normal heart sounds, normal peripheral pulses Gastrointestinal/Abdomen Exam: soft, normal bowel sounds, No tenderness, No mass Back Exam: normal inspection, normal range of motion, No CVA tenderness, No vertebral tenderness Extremity Exam: normal inspection, normal range of motion, pelvis stable Skin Exam: normal color, warm, dry, No rash Lymphatic Exam: No adenopathy Results - Labs Lab/Micro Results: Lab Results-Last 24 Hours 09/09/18 09/09/18 09/09/18 Range/Units 17:45 17:45 18:00 WBC 15.4 H (4.0-10.5) K/mm3 RBC 4.69 (4.1-5.4) M/mm3 Hgb 13.8 (12.0-16.0) gm/dl Hct 41.2 (35-47) % MCV 87.8 (78-100) fl MCH 29.4 (26-32) pg MCHC 33.5 (32-36) g/dl RDW 13.5 (11.5-14.0) % Plt Count 224 (150-450) K/mm3 MPV 9.1 (6-9.5) fl Gran % (36.0-66.0) % Eos # (Auto) (0-0.5) Absolute Lymphs (auto) (1.0-4.6) Absolute Monos (auto) (0.0-1.3) Lymphocytes % (24.0-44.0) % Monocytes % (0.0-12.0) % Eosinophils % (0.00-5.0) % Basophils % (0.0-0.4) % Absolute Granulocytes (1.4-6.9) Segmented Neutrophils 82 H (36.0-66.0) % Band Neutrophils 1 (0.0-2.0) % Lymphocytes (Manual) 13 L (24-44) % Monocytes (Manual) 4 (0.0-12.0) % Basophils # (0-0.4) Toxic Granulation 1+ Platelet Estimate NORMAL (NORMAL) RBC Morphology NORMAL PT (9.95-12.35) SECONDS INR (0.8-3.0) pO2/FiO2 Ratio 21.0 % VBG pH 7.44 H (7.32-7.42) VBG pCO2 at Pat Temp 32 L (42-55) mm/Hg VBG pO2 at Pat Temp 35 (25-40) mm/Hg VBG HCO3 21.7 L (22-28) meq/L VBG O2 Sat (Alireza) 75.3 L (95-100) VBG Base Excess -1.5 (-2.0-2.0) VBG Hemoglobin 14.9 VBG Carboxyhemoglobin 3.4 (0.0-6.9) % T HGB POC Potassium 3.5 (3.5-5.1) Sodium (137-145) mmol/L Potassium (3.5-5.1) mmol/L Chloride (98-107) mmol/L Carbon Dioxide (22-30) mmol/L Anion Gap (5-15) MEQ/L BUN (7-17) mg/dL Creatinine (0.52-1.04) mg/dL Estimated GFR ML/MIN Glucose (74-106) mg/dL Lactic Acid 1.2 (0.4-2.0) Calcium (8.4-10.2) mg/dL Troponin I (0.000-0.034) ng/mL 09/09/18 09/09/18 09/09/18 Range/Units 18:00 18:00 18:00 WBC (4.0-10.5) K/mm3 RBC (4.1-5.4) M/mm3 Hgb (12.0-16.0) gm/dl Hct (35-47) % MCV (78-100) fl MCH (26-32) pg MCHC (32-36) g/dl RDW (11.5-14.0) % Plt Count (150-450) K/mm3 MPV (6-9.5) fl Gran % (36.0-66.0) % Eos # (Auto) (0-0.5) Absolute Lymphs (auto) (1.0-4.6) Absolute Monos (auto) (0.0-1.3) Lymphocytes % (24.0-44.0) % Monocytes % (0.0-12.0) % Eosinophils % (0.00-5.0) % Basophils % (0.0-0.4) % Absolute Granulocytes (1.4-6.9) Segmented Neutrophils (36.0-66.0) % Band Neutrophils (0.0-2.0) % Lymphocytes (Manual) (24-44) % Monocytes (Manual) (0.0-12.0) % Basophils # (0-0.4) Toxic Granulation Platelet Estimate (NORMAL) RBC Morphology PT 14.7 H (9.95-12.35) SECONDS INR 1.26 (0.8-3.0) pO2/FiO2 Ratio % VBG pH (7.32-7.42) VBG pCO2 at Pat Temp (42-55) mm/Hg VBG pO2 at Pat Temp (25-40) mm/Hg VBG HCO3 (22-28) meq/L VBG O2 Sat (Alireza) (95-100) VBG Base Excess (-2.0-2.0) VBG Hemoglobin VBG Carboxyhemoglobin (0.0-6.9) % T HGB POC Potassium (3.5-5.1) Sodium 136 L (137-145) mmol/L Potassium 3.7 (3.5-5.1) mmol/L Chloride 101 (98-107) mmol/L Carbon Dioxide 21 L (22-30) mmol/L Anion Gap 16.7 H (5-15) MEQ/L BUN 19 H (7-17) mg/dL Creatinine 0.86 (0.52-1.04) mg/dL Estimated GFR > 60.0 ML/MIN Glucose 111 H (74-106) mg/dL Lactic Acid (0.4-2.0) Calcium 8.7 (8.4-10.2) mg/dL Troponin I < 0.012 (0.000-0.034) ng/mL 09/09/18 09/10/18 09/10/18 Range/Units 21:04 00:20 02:52 WBC (4.0-10.5) K/mm3 RBC (4.1-5.4) M/mm3 Hgb (12.0-16.0) gm/dl Hct (35-47) % MCV (78-100) fl MCH (26-32) pg MCHC (32-36) g/dl RDW (11.5-14.0) % Plt Count (150-450) K/mm3 MPV (6-9.5) fl Gran % (36.0-66.0) % Eos # (Auto) (0-0.5) Absolute Lymphs (auto) (1.0-4.6) Absolute Monos (auto) (0.0-1.3) Lymphocytes % (24.0-44.0) % Monocytes % (0.0-12.0) % Eosinophils % (0.00-5.0) % Basophils % (0.0-0.4) % Absolute Granulocytes (1.4-6.9) Segmented Neutrophils (36.0-66.0) % Band Neutrophils (0.0-2.0) % Lymphocytes (Manual) (24-44) % Monocytes (Manual) (0.0-12.0) % Basophils # (0-0.4) Toxic Granulation Platelet Estimate (NORMAL) RBC Morphology PT (9.95-12.35) SECONDS INR (0.8-3.0) pO2/FiO2 Ratio % VBG pH (7.32-7.42) VBG pCO2 at Pat Temp (42-55) mm/Hg VBG pO2 at Pat Temp (25-40) mm/Hg VBG HCO3 (22-28) meq/L VBG O2 Sat (Alireza) (95-100) VBG Base Excess (-2.0-2.0) VBG Hemoglobin VBG Carboxyhemoglobin (0.0-6.9) % T HGB POC Potassium (3.5-5.1) Sodium (137-145) mmol/L Potassium (3.5-5.1) mmol/L Chloride (98-107) mmol/L Carbon Dioxide (22-30) mmol/L Anion Gap (5-15) MEQ/L BUN (7-17) mg/dL Creatinine (0.52-1.04) mg/dL Estimated GFR ML/MIN Glucose (74-106) mg/dL Lactic Acid (0.4-2.0) Calcium (8.4-10.2) mg/dL Troponin I < 0.012 < 0.012 < 0.012 (0.000-0.034) ng/mL 09/10/18 09/10/18 Range/Units 06:00 06:00 WBC 10.7 H (4.0-10.5) K/mm3 RBC 4.11 (4.1-5.4) M/mm3 Hgb 12.1 (12.0-16.0) gm/dl Hct 36.7 (35-47) % MCV 89.3 (78-100) fl MCH 29.4 (26-32) pg MCHC 33.0 (32-36) g/dl RDW 13.4 (11.5-14.0) % Plt Count 186 (150-450) K/mm3 MPV 9.0 (6-9.5) fl Gran % 76.1 H (36.0-66.0) % Eos # (Auto) 0.11 (0-0.5) Absolute Lymphs (auto) 1.46 (1.0-4.6) Absolute Monos (auto) 0.98 (0.0-1.3) Lymphocytes % 13.6 L (24.0-44.0) % Monocytes % 9.1 (0.0-12.0) % Eosinophils % 1.0 (0.00-5.0) % Basophils % 0.2 (0.0-0.4) % Absolute Granulocytes 8.16 H (1.4-6.9) Segmented Neutrophils (36.0-66.0) % Band Neutrophils (0.0-2.0) % Lymphocytes (Manual) (24-44) % Monocytes (Manual) (0.0-12.0) % Basophils # 0.02 (0-0.4) Toxic Granulation Platelet Estimate (NORMAL) RBC Morphology PT (9.95-12.35) SECONDS INR (0.8-3.0) pO2/FiO2 Ratio % VBG pH (7.32-7.42) VBG pCO2 at Pat Temp (42-55) mm/Hg VBG pO2 at Pat Temp (25-40) mm/Hg VBG HCO3 (22-28) meq/L VBG O2 Sat (Alireza) (95-100) VBG Base Excess (-2.0-2.0) VBG Hemoglobin VBG Carboxyhemoglobin (0.0-6.9) % T HGB POC Potassium (3.5-5.1) Sodium (137-145) mmol/L Potassium (3.5-5.1) mmol/L Chloride (98-107) mmol/L Carbon Dioxide (22-30) mmol/L Anion Gap (5-15) MEQ/L BUN (7-17) mg/dL Creatinine (0.52-1.04) mg/dL Estimated GFR ML/MIN Glucose (74-106) mg/dL Lactic Acid (0.4-2.0) Calcium (8.4-10.2) mg/dL Troponin I < 0.012 (0.000-0.034) ng/mL - Radiology Impressions Radiology Exams & Impressions: Radiology Procedures Category Date Time Status NECK WITH CONTRAST [CT] Stat Exams 09/09/18 18:17 Taken - Other Procedures and Tests Respiratory Therapy 09/09/18 23:30 Peak Expiratory Flow Rate ONCE Respiratory Therapy Assessment DAILY Assessment/Plan (1) Parotitis, acute Current Visit: Yes Status: Acute Assessment & Plan: she has severe allergy to penicillin so thus will start empiric coverage for community acquired infection with vancomycin for gram + coverage as well as levaquin for gram negative coverage and flagyl for the anaerobic coverage. warm compresses and sour lozenges as well prn Code(s): K11.21 - ACUTE SIALOADENITIS (2) Cellulitis Current Visit: Yes Status: Acute Code(s): L03.90 - CELLULITIS, UNSPECIFIED (3) Failure of outpatient treatment Current Visit: Yes Status: Acute Code(s): Z78.9 - OTHER SPECIFIED HEALTH STATUS (4) History of breast cancer Current Visit: Yes Status: Chronic Code(s): Z85.3 - PERSONAL HISTORY OF MALIGNANT NEOPLASM OF BREAST (5) Allergic asthma Current Visit: Yes Status: Chronic Code(s): J45.909 - UNSPECIFIED ASTHMA, UNCOMPLICATED
--- NOTE | 2018-09-10 08:40 | XRAY ---
Indication: Right facial pain and swelling. Multiple contiguous axial images obtained through the neck using 60 cc Isovue 370 contrast. Comparison: None There are multiple bilateral dental amalgams producing beam artifact. There is right jaw deep and superficial soft tissue swelling/induration presumed inflammatory. Lesser degree seen of the right face. Right parotid gland is also prominent with mild stranding favoring parotiditis. No subcutaneous emphysema or walled off fluid collection. Small matted right sublingual lymph nodes presumed reactive. Submandibular glands are bilaterally symmetric. Major arteries and veins are normal in course and caliber. Thyroid gland enhances with 4 mm right lobe nodule/cyst. Supra and infraglottic airway are widely patent. Underlying cervical spine intact without suspicious bony lesions. Base of the brain and lung apices unremarkable. Impression: Right jaw and right face soft tissue swelling/induration favoring cellulitis and also right parotiditis. Small reactive lymph nodes. CT DI 9.79
[2018-09-10] MEDS: Levofloxacin 500MG/100ML D5W 500 MG/100 ML BAG IV SCH (09:34)
[2018-09-10] MEDS: ENOXAPARIN SODIUM SQ SCH (09:35)
[2018-09-10] MEDS: ANUSOL-HC 2.5% CREAM 30 GM TOP SCH (09:39)
[2018-09-10] MEDS ORDERED: [UNRECOGNIZED DRUG - OTHER] TP SCH (10:00)
[2018-09-10] MEDS ORDERED: GARAMYCIN INJ*** 120 MG in Sodium Chloride 0.9% 50 ML 50 ML IV SCH (12:00)
[2018-09-10] MEDS: FLAGYL 500 MG IVPB 500 MG/100 ML BAG IV SCH ×2 (14:11→21:10)
[2018-09-10] MEDS: VANCOCIN 1 GM VIAL*** 1.5 GM in Sodium Chloride 0.9% 500 ML 500 ML IV SCH (16:07)
[2018-09-10] MEDS: PATIENT OWN MEDICATION PO SCH (21:11)
[2018-09-10] MEDS ORDERED: NON-FORMULARY ITEM PO SCH (22:00)
[2018-09-11] MEDS: Sodium Chloride 0.9% 1000 ML 1,000 ML IV SCH ×2 (01:19→15:12)
[2018-09-11] MEDS: TYLENOL 325 MG PO PRN ×4 (03:32→23:10)
[2018-09-11] MEDS: FLAGYL 500 MG IVPB 500 MG/100 ML BAG IV SCH ×3 (05:26→22:02)
[2018-09-11 05:50] LABS: BASOPHIL % 0.4 % (0.0-0.4); Basophil (Absolute #) 0.03 (0-0.4); Eosinophil % 3.7 % (0.00-5.0); Eosinophil (Absolute #) 0.25 (0-0.5); Granulocyte Absolute (ANC) 4.85 (1.4-6.9); Granulocytes % 72.3 % (36.0-66.0); Hematocrit 33.8 % (35-47); Hemoglobin 11.1 gm/dl (12.0-16.0); Lymphocyte (Absolute #) 1.01 (1.0-4.6); Lymphocytes % 15.1 % (24.0-44.0); Mean Cell Volume 89.7 fl (78-100); Mean Corpuscular Hemoglobin 29.4 pg (26-32); Mean Corpuscular Hgb Concent. 32.8 g/dl (32-36); Monocyte (Absolute #) 0.57 (0.0-1.3); Monocytes % 8.5 % (0.0-12.0); Platelet Count 181 K/mm3 (150-450); Red Blood Count 3.77 M/mm3 (4.1-5.4); Red Cell Distribution Width 13.5 % (11.5-14.0); White Blood Count 6.7 K/mm3 (4.0-10.5)
[2018-09-11 06:08] LABS: ALKALINE PHOSPHATASE 53 U/L (38-126); ANION GAP 9.6 MEQ/L (5-15); BLOOD UREA NITROGEN 11 mg/dL (7-17); CHLORIDE 111 mmol/L (98-107); Calcium 8.3 mg/dL (8.4-10.2); Carbon Dioxide 24 mmol/L (22-30); Creatinine 1 0.78 mg/dL (0.52-1.04); Glucose 95 mg/dL (74-106); Potassium 3.8 mmol/L (3.5-5.1); SGOT/AST 22 U/L (14-36); SGPT/ALT 31 U/L (0-35); SODIUM 140 mmol/L (137-145); Total Protein 5.6 g/dL (6.3-8.2)
[2018-09-11] MEDS: Advair Hfa 115/21 Common canister IH SCH ×2 (07:32→19:05)
--- NOTE | 2018-09-11 08:11 | PCM.NOTE ---
Date and Time: 09/11/18806 Subjective Assessment: the swelling is a little better and more isolated now she can open her mouth a little more still pain with chewing or opening on that side no fever no vomiting or abdominal pain no chest pain or shorntess of breath. Objective Exam General Appearance: no apparent distress, alert Neurologic Exam: alert, oriented x 3, cooperative, normal mood/affect, nml cerebellar function, sensation nml, No motor deficits Skin Exam: normal color, warm, dry Eye Exam: PERRL, EOMI, eyes nml inspection Ears, Nose, Throat Exam: pharynx normal, moist mucous membranes, other (right face / parotid with swelling and mild induration no fluctuance difficulty opening opening mouth redness improved warmth improved no lymphadenopathy) Neck Exam: normal inspection, non-tender, supple, full range of motion Respiratory Exam: normal breath sounds, lungs clear, No respiratory distress Cardiovascular Exam: regular rate/rhythm, normal heart sounds Gastrointestinal/Abdomen Exam: soft, No tenderness, No mass Extremity Exam: normal inspection, normal range of motion Back Exam: normal inspection, normal range of motion, No CVA tenderness, No vertebral tenderness Pelvic Exam: deferred Rectal Exam: deferred OBJECTIVE DATA Vital Signs: Vital Signs - 24 hr Temp Pulse Resp BP Pulse Ox 09/11/18 07:33 78 18 98 09/11/18 07:13 98.3 F 78 18 113/60 97 09/11/18 04:00 98.6 F 76 18 117/58 97 09/10/18 23:56 98.4 F 76 18 98/48 99 09/10/18 19:53 87 17 97 09/10/18 19:38 99.1 F 87 17 108/56 97 09/10/18 15:57 99 F 83 20 108/59 98 09/10/18 12:14 98 F 80 18 119/65 96 Pain Assessment - Last Documented Pain Intensity 3 Pain Scale Used 0-10 Pain Scale Intake and Output: Intake & Output 09/08/18 09/09/18 09/10/18 09/11/18 11:59 11:59 11:59 11:59 Intake Total 2268 2942 Output Total 2700 3800 Balance -432 -858 Weight 75.5 kg Lab Results: Lab Results-Last 24 Hours 09/11/18 09/11/18 Range/Units 05:41 05:41 WBC 6.7 (4.0-10.5) K/mm3 RBC 3.77 L (4.1-5.4) M/mm3 Hgb 11.1 L (12.0-16.0) gm/dl Hct 33.8 L (35-47) % MCV 89.7 (78-100) fl MCH 29.4 (26-32) pg MCHC 32.8 (32-36) g/dl RDW 13.5 (11.5-14.0) % Plt Count 181 (150-450) K/mm3 MPV 9.0 (6-9.5) fl Gran % 72.3 H (36.0-66.0) % Eos # (Auto) 0.25 (0-0.5) Absolute Lymphs (auto) 1.01 (1.0-4.6) Absolute Monos (auto) 0.57 (0.0-1.3) Lymphocytes % 15.1 L (24.0-44.0) % Monocytes % 8.5 (0.0-12.0) % Eosinophils % 3.7 (0.00-5.0) % Basophils % 0.4 (0.0-0.4) % Absolute Granulocytes 4.85 (1.4-6.9) Basophils # 0.03 (0-0.4) Sodium 140 (137-145) mmol/L Potassium 3.8 (3.5-5.1) mmol/L Chloride 111 H (98-107) mmol/L Carbon Dioxide 24 (22-30) mmol/L Anion Gap 9.6 (5-15) MEQ/L BUN 11 (7-17) mg/dL Creatinine 0.78 (0.52-1.04) mg/dL Estimated GFR > 60.0 ML/MIN Glucose 95 (74-106) mg/dL Calcium 8.3 L (8.4-10.2) mg/dL Total Bilirubin 0.20 (0.2-1.3) mg/dL AST 22 (14-36) U/L ALT 31 (0-35) U/L Alkaline Phosphatase 53 (38-126) U/L Serum Total Protein 5.6 L (6.3-8.2) g/dL Albumin 3.0 L (3.5-5.0) g/dL Radiology Exams: Radiology Procedures Category Date Time Status NECK WITH CONTRAST [CT] Stat Exams 09/09/18 18:17 Completed Assessment/Plan (1) Parotitis, acute Current Visit: Yes Status: Acute Onset Date: ~09/09/18 Assessment & Plan: with the cellulites failed initial outpatient therapy given her allergies continue vanc + levaquin + flagyl will plan min 48 hours iv and monitor possible de-escalate complicated by her drug allergies. Code(s): K11.21 - ACUTE SIALOADENITIS (2) Cellulitis Current Visit: Yes Status: Resolved Onset Date: ~09/09/18 Code(s): L03.90 - CELLULITIS, UNSPECIFIED (3) Failure of outpatient treatment Current Visit: Yes Status: Acute Code(s): Z78.9 - OTHER SPECIFIED HEALTH STATUS (4) History of breast cancer Current Visit: Yes Status: Chronic Code(s): Z85.3 - PERSONAL HISTORY OF MALIGNANT NEOPLASM OF BREAST (5) Allergic asthma Current Visit: Yes Status: Chronic Code(s): J45.909 - UNSPECIFIED ASTHMA, UNCOMPLICATED
[2018-09-11] MEDS: Singulair 10 MG PO SCH (08:54)
[2018-09-11] MEDS: ENOXAPARIN SODIUM SQ SCH (08:54)
[2018-09-11] MEDS: Levofloxacin 500MG/100ML D5W 500 MG/100 ML BAG IV SCH (08:54)
[2018-09-11] MEDS: ANUSOL-HC 2.5% CREAM 30 GM TOP SCH (09:01)
[2018-09-11] MEDS: VANCOCIN 1 GM VIAL*** 1.5 GM in Sodium Chloride 0.9% 500 ML 500 ML IV SCH (16:29)
[2018-09-11] MEDS: PATIENT OWN MEDICATION PO SCH (22:03)
[2018-09-12] MEDS: TYLENOL 325 MG PO PRN (03:34)
[2018-09-12] MEDS: FLAGYL 500 MG IVPB 500 MG/100 ML BAG IV SCH (06:23)
[2018-09-12] MEDS: Advair Hfa 115/21 Common canister IH SCH (06:44)
[2018-09-12 06:58] VITALS: BP 132/62; PULSE 80; O2SAT 98
--- NOTE | 2018-09-12 08:19 | PCM.DS ---
Discharge Summary Date of Admission: 09/10/18 07:52 Date of Discharge: 09/12/2018 Admitting Physician: PAOLA WILKINSON LAWRENCE Primary Care Provider: ANTIONETTE LIRA Allergies Allergies Penicillins Allergy (Unknown, Verified 09/09/18 17:40) Tightness of Throat Sulfa (Sulfonamide Antibiotics) [Sulfa(Sulfonamide Antibiotics)] Allergy ( Unknown, Verified 09/09/18 17:40) Rash tetracycline [Tetracycline] Allergy (Unknown, Verified 09/09/18 17:40) Rash morphine Adverse Reaction (Intermediate, Verified 09/09/18 17:40) Vomiting anesthetics Adverse Reaction (Unknown, Uncoded 09/09/18 17:40) Nausea and Vomiting Hospital Summary - Hospital Course Hospital Course: She presented with 48 hours of swelling and pain in her right face that was rapidly worsening. She was started on po clindamycin that she took 2 or 3 doses of prior to presentation to her nurse practitioner. She had severe swelling and pain and difficulty opening mouth. She was found to have luekocytosis and a CT of the head and neck showed parotitiditis and cellulitis of the right face. She was given gentamicyn and vancomycin in the ER. This was changed to vancomycin + levaquin + flagyl iv on arrival to the floor. She remained afebrile and the swelling gradually improved. The wbc improved to normal as well. She was still having the swelling and pain and tenderness to the right face but it was showing improvement and no further warmth. She was also treated with warm compresses and sour lozenges. She has severe allergies to penicillins, sulfa and tetracycline making the oral regimen a little more difficult. given she only had <24 hours of antibiotic prior to presentation will change to po levaquin 500 mg daily as well as increase her clindamycin to 450 mg po tid. the signs and symptoms of worsening infection were discussed and information on how and when to call if these develop were explained - Vitals & Intake/Output Vital Signs: Vital Signs Temperature 98.2 F 09/12/18 06:54 Pulse Rate 80 09/12/18 06:54 Respiratory Rate 18 09/12/18 06:54 Blood Pressure 132/62 09/12/18 06:54 O2 Sat by Pulse Oximetry 98 09/12/18 06:54 Intake & Output: Intake & Output 11/05/18 09/10/18 09/11/18 09/12/18 11:59 11:59 11:59 11:59 Intake Total 5236 5534 2820 Output Total 2702 7890 1700 Balance -432 -858 1120 Weight 75.5 kg - Lab Result Diagrams: 09/11/18 05:41 09/11/18 05:41 Micro Results-Entire Visit: Microbiology 09/09/18 18:15 Blood Culture - Preliminary Blood NO GROWTH TO DATE 09/09/18 18:00 Blood Culture - Preliminary Blood NO GROWTH TO DATE - Procedures and Test Procedures and Tests throughout Hospitalization: Therapy Orders & Screens 09/09/18 23:30 Peak Expiratory Flow Rate ONCE Comment: Reason For Exam: Diagnosis: acute parotiditis, facial cellulitis Respiratory Therapy Assessment DAILY Comment: Diagnosis: acute parotiditis, facial cellulitis Discharge Exam General Appearance: no apparent distress, alert Neurologic Exam: alert, oriented x 3, cooperative, normal mood/affect, nml cerebellar function, sensation nml, No motor deficits Skin Exam: normal color, warm, dry Eye Exam: PERRL, EOMI, eyes nml inspection Ears, Nose, Throat Exam: pharynx normal, moist mucous membranes, other (right face swelling tenderness no induration today no fluctuance no warmth) Neck Exam: normal inspection, non-tender, supple, full range of motion Respiratory Exam: normal breath sounds, lungs clear, No respiratory distress Cardiovascular Exam: regular rate/rhythm, normal heart sounds Gastrointestinal/Abdomen Exam: soft, No tenderness, No mass Extremity Exam: normal inspection, normal range of motion Back Exam: normal inspection, normal range of motion, No CVA tenderness, No vertebral tenderness Pelvic Exam: deferred Rectal Exam: deferred Final Diagnosis/Problem List - Final Discharge Diagnosis/Problem (1) Parotitis, acute Current Visit: Yes Status: Acute Onset Date: ~09/09/18 (2) Cellulitis Current Visit: Yes Status: Resolved Onset Date: ~09/09/18 (3) Failure of outpatient treatment Current Visit: Yes Status: Acute (4) History of breast cancer Current Visit: Yes Status: Chronic (5) Allergic asthma Current Visit: Yes Status: Chronic - Discharge Discharge Date: 09/12/18 Disposition: Home, Self-Care Condition: Stable Prescriptions: New Clindamycin HCl 150 mg PO TID #21 capsule Levofloxacin [Levaquin] 500 mg PO DAILY #7 tablet Continue Cetirizine HCl [Zyrtec] 10 mg PO DAILY Albuterol 2.5 mg/3 ml Neb [Proventil 2.5 mg/3 ml Neb] 2 puffs IH Q4- 6HPRN PRN PRN Reason: Allergies Montelukast Sodium [Singulair] 10 mg PO DAILY Beclomethasone Dipropionate [Qvar] 8.7 gm IH DAILY Anastrozole [Arimidex] 1 mg PO DAILY Calcium Carbonate/Vitamin D3 [Calcium 250+D Tablet] 2 each PO DAILY Clobetasol Propionate/Emoll [Clobetasol Emollient 0.05% Crm] 1 applic TP DAILY Clindamycin HCl 300 mg PO Q8H Additional Instructions: Dr. Lira after hours number [phone] if infection worsening Follow up with: ANTIONETTE LIRA [Primary Care Provider] - 1 Week
[2018-09-12] MEDS: Levofloxacin 500MG/100ML D5W 500 MG/100 ML BAG IV SCH (08:39)
[2018-09-12] MEDS: ENOXAPARIN SODIUM SQ SCH (10:07)
[2018-09-12] MEDS: ANUSOL-HC 2.5% CREAM 30 GM TOP SCH (10:07)
[2018-09-12] MEDS: Singulair 10 MG PO SCH (10:08)
[2018-09-12] MEDS ORDERED: TROUGH DRUG LEVELS IJ ONE (15:30)
== END 2018-09-12 10:34 | disposition home or self-care (01) | DRG 155 ==
LOC: ED 17:13 → MED SURG 20:45 → OBSVTOIN 09-10 07:52
PROVIDERS: ADMIT Internal Medicine; ATTEND Family Medicine
DX: K11.23 Chronic sialoadenitis (principal); L03.90 Cellulitis, unspecified; Z78.9 Other specified health status; Z85.3 Personal history of malignant neoplasm of breast; J45.909 Unspecified asthma, uncomplicated; Z79.899 Other long term (current) drug therapy
CPT/HCPCS: 36415; 70491; 80048; 80053; 82805; 83605; 84484; 85025; 85610; 87040; 93005; 93041; 94150; 94640; 94760; 96360; 96365; 96367; 99285; G0378; J1580; J1642; J1650; J1956; J3370; A9270-GY